=== PATIENT | male | born 1985 | race Caucasian/White ===

== ENCOUNTER → 2018-04-15 | Outpatient (CLI) | payer MEDICAID ==
[~2018-04-15] MED LIST: RT-ALBUTEROL SULF 2.5 MG/3 ML PRE-MIX VIAL INH ONE
== END ==
LOC: RT 16:45
PROVIDERS: ATTEND Student in an Organized Health Care Education/Training Program
DX: F17.200 Nicotine dependence, unspecified, uncomplicated (principal); J45.909 Unspecified asthma, uncomplicated
CPT/HCPCS: 94060; 94729

== ENCOUNTER → 2021-09-26 | Outpatient (CLI) | payer MEDICAID ==
[2021-09-26 15:32] LABS: HEMATOCRIT 42 % (40-54); HEMOGLOBIN 14.1 g/dL (13.3-17.7); MEAN CORPUSCULAR HEMOGLOBIN 31 pg (25-34); MEAN CORPUSCULAR HGB CONC 34 g/dL (32-36); MEAN CORPUSCULAR VOLUME 92 fL (80-99); MEAN PLATELET VOLUME 9.2 fL (9.0-12.2); PLATELET COUNT 176 10^3/uL (130-400); WHITE BLOOD COUNT 9.6 10^3/uL (4.3-11.0)
[2021-09-26 15:56] LABS: ALBUMIN 4.3 GM/DL (3.2-4.5); BILIRUBIN,TOTAL 0.2 MG/DL (0.1-1.0); CALCIUM 9.2 MG/DL (8.5-10.1); CREATININE SERUM 0.98 MG/DL (0.60-1.30); POTASSIUM 4.1 MMOL/L (3.6-5.0); TOTAL PROTEIN 7.7 GM/DL (6.4-8.2)
== END ==
LOC: LAB 14:57
PROVIDERS: ATTEND Family Medicine
DX: E11.621 Type 2 diabetes mellitus with foot ulcer (principal); L97.512 Non-pressure chronic ulcer of other part of right foot with fat layer exposed; B35.3 Tinea pedis; L03.115 Cellulitis of right lower limb; T65.292A Toxic effect of other tobacco and nicotine, intentional self-harm, initial encounter; F71 Moderate intellectual disabilities
CPT/HCPCS: 36415; 80053; 83036; 85027

== ENCOUNTER → 2021-09-26 | Outpatient (CLI) | payer MEDICAID | LOC: WOUNDCARE 13:10 | PROVIDERS: ATTEND Family Medicine | DX: E11.621 Type 2 diabetes mellitus with foot ulcer (principal); L97.512 Non-pressure chronic ulcer of other part of right foot with fat layer exposed; B35.3 Tinea pedis; L03.115 Cellulitis of right lower limb; T65.292A Toxic effect of other tobacco and nicotine, intentional self-harm, initial encounter; F71 Moderate intellectual disabilities | CPT/HCPCS: 11042; A6197; G0463 ==

== ENCOUNTER → 2021-10-04 | Outpatient (CLI) | payer MEDICAID | LOC: WOUNDCARE 12:20 | PROVIDERS: ATTEND Family Medicine | DX: E11.621 Type 2 diabetes mellitus with foot ulcer (principal); L97.512 Non-pressure chronic ulcer of other part of right foot with fat layer exposed; B53.8 Other malaria, not elsewhere classified; T65.292A Toxic effect of other tobacco and nicotine, intentional self-harm, initial encounter; F71 Moderate intellectual disabilities; I96 Gangrene, not elsewhere classified | CPT/HCPCS: 11042; G0463 ==

== ENCOUNTER → 2021-10-11 | Outpatient (CLI) | payer MEDICAID | LOC: WOUNDCARE 12:45 | PROVIDERS: ATTEND Family Medicine | DX: E11.621 Type 2 diabetes mellitus with foot ulcer (principal); L97.512 Non-pressure chronic ulcer of other part of right foot with fat layer exposed; E11.52 Type 2 diabetes mellitus with diabetic peripheral angiopathy with gangrene; B35.3 Tinea pedis; T65.292A Toxic effect of other tobacco and nicotine, intentional self-harm, initial encounter; F71 Moderate intellectual disabilities | CPT/HCPCS: 99212 ==

== ENCOUNTER → 2021-10-18 | Outpatient (CLI) | payer MEDICAID | LOC: WOUNDCARE 12:41 | PROVIDERS: ATTEND Family Medicine | DX: E11.621 Type 2 diabetes mellitus with foot ulcer (principal); T65.292A Toxic effect of other tobacco and nicotine, intentional self-harm, initial encounter; F71 Moderate intellectual disabilities | CPT/HCPCS: 99212 ==